=== PATIENT | male | born 1995 | race African-American/Black ===

== ENCOUNTER 2018-02-25 20:50 | Emergency (ER) | payer SELFPAY ==
--- NOTE | 2018-02-25 21:09 | NUR ---
ED Nurse Note: Patient called and not in waiting room.
--- NOTE | 2018-02-25 21:21 | NUR ---
ED Nurse Note: Patient called and not in waiting room.
--- NOTE | 2018-02-26 02:42 | Emergency Room Report ---
History of Present Illness General Chief Complaint: To Be Triaged Medical Decision Making Diagnostic Impression: Primary Impression: LWBSMD ER Course Patient presented after my shift and left prior to triage. Disposition: LEFT W/OUT BEING SEEN Condition: Unknown Referrals: NOT CHOSEN IPA/,REFERRING (PCP) Louis Rojas MD Feb 26, 2018 02:42
== END 2018-02-25 21:21 | disposition left against medical advice (07) ==
LOC: EMR 21:21
DX: Z53.21 Procedure and treatment not carried out due to patient leaving prior to being seen by health care provider (principal)

== ENCOUNTER 2018-03-12 17:39 | Emergency (ER) | payer OTHER ==
[2018-03-12] VITALS (7 sets, daily range): BP systolic 106–126; BP diastolic 54–78
[~2018-03-12] VITALS: Ht 170.2 cm; Wt 74.8 kg
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
--- NOTE | 2018-03-12 18:12 | NUR ---
ED Nurse Note: Belongings are in locker #2
--- NOTE | 2018-03-12 18:28 | NUR ---
ED Nurse Note: Blood and urine collected and sent to lab.
[2018-03-12 18:41] LABS: APPEARANCE,URINE CLEAR; BILIRUBIN, URINE NEGATIVE (NEGATIVE); GLUCOSE, URINE (UA) NEGATIVE (NEGATIVE); KETONES,URINE 1+ (NEGATIVE); LEUKOCYTE ESTERASE ,URINE 1+ (NEGATIVE); NITRITE,URINE NEGATIVE (NEGATIVE); PH,URINE 7 (4.5-8.0); PROTEIN,URINE 3+ (NEGATIVE); UROBILINOGEN,URINE 4 MG/DL (0.0-1.0)
[2018-03-12 18:50] LABS: COLOR,URINE YELLOW
[2018-03-12 19:01] LABS: ANION GAP 7 mmol/L (5-15); BLOOD UREA NITROGEN 10 mg/dL (7-18); CALCIUM 9.2 MG/DL (8.5-10.1); CARBON DIOXIDE 29 MMOL/L (21-32); CHLORIDE 107 MMOL/L (98-107); CREATININE 1.3 MG/DL (0.55-1.30); POTASSIUM 4.8 MMOL/L (3.5-5.1); SODIUM 143 MMOL/L (136-145)
[2018-03-12 19:05] LABS: ALANINE AMINOTRANSFERASE 21 U/L (12-78); ALBUMIN 4.2 G/DL (3.4-5.0); ALKALINE PHOSPHATASE 73 U/L (46-116); ASPARTATE AMINO TRANSFERASE 35 U/L (15-37); BASOPHILS % (AUTO) 3.2 % (0.0-2.0); BILIRUBIN,TOTAL 0.6 MG/DL (0.2-1.0); EOSINOPHILS % (AUTO) 1.8 % (0.0-3.0); HEMATOCRIT 44.5 % (42.0-52.0); HEMOGLOBIN 15.3 G/DL (14.2-18.0); LYMPHOCYTES % (AUTO) 26.3 % (20.0-45.0); MEAN CORPUSCULAR VOLUME 96 FL (80-99); MONOCYTES % (AUTO) 12.5 % (1.0-10.0); NEUTROPHILS % (AUTO) 56.2 % (45.0-75.0); PLATELET COUNT 171 K/UL (150-450); RED BLOOD COUNT 4.62 M/UL (4.70-6.10); RED CELL DISTRIBUTION WIDTH 11.2 % (11.6-14.8); WHITE BLOOD COUNT 4.9 K/UL (4.8-10.8)
--- NOTE | 2018-03-12 19:40 | NUR ---
ED Nurse Note: RECIEVED REPORT FROM AM NURSE TO RESUME CARE, PT IN BED IN 4 POINT HARD RESTRAINTS, ONE ARM ABOVE HEAD, PT IS SLEEPIG AND AROUSES VERY SEDATED AND LETHARGIC LIKE, ALL RESTRAINTS IMMEDIATELY REMOVED, PT NOT FIGHTING OR EVEN WITHDRAWING,NO SOB OR LABORED BREATHING, NO MONITORING, IN ROOM, PT V/S TAKEN VIA PORTABLE MACHING, HEART RATE LOW, MD AWARE, WILL CONTINUE TO CLOSELY MONITOR AND RESUME CARE NEEDED.
--- NOTE | 2018-03-12 22:00 | NUR ---
ED Nurse Note: PT CONTINUES TO ERST IN BED, PT IS SLEEPIGN BUT VERBALLY RESPONDS, IS POLITE, CALM AND COOPERATIVE, PT IS ORIENTED X 4, EVEN TO EVENT AND APOLOGETIC, PT REMAINS OUT OF RESTRAINTS, ON CLOSE, CONTINUOUS MONITORING.
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
[2018-03-13] VITALS (7 sets, daily range): BP systolic 102–127; BP diastolic 59–68
--- NOTE | 2018-03-13 00:15 | NUR ---
ED Nurse Note: Pt more awake and alert, pt is aware of event, pt was oriented to place and time, tp is calm and cooperative, pt given sandwich and juice, tolerated well, pt remains out of restraints, will continue to closely monitor, pt deneis pain, no sob or labored breathing, pt states he did make statements about killing himself, pt states he was very frustrated and having family problems and is depressed, sat and allowed pt to vent and express feelings, also explained hold process and plan of care, no acute chagnes or distress noted, will continue to closely monitor.
--- NOTE | 2018-03-13 03:00 | NUR ---
ED Nurse Note: Pt sleeping, arouses easily to touch, no chagnes or increased distress, pt remains calm and cooperative and out of restraints. no sob or labored breathing.
--- NOTE | 2018-03-13 05:00 | NUR ---
ED Nurse Note: PT SLEEPING, AROUSES EASILY TO TOUCH, NO ACUTE CHANGES OR INCREASED DISTRESS, PT CONTINUES TO BE CALM AND COOPERATIVE, NO NEED FOR RESTRAINTS, PT REMAINS ON HOLD AND SUICIDAL PRECAUTIONS, WILL CONTINUE TO CLOSELY MONITOR, SITTER TO ARRIVE IN AM.
--- NOTE | 2018-03-13 07:10 | NUR ---
HAND-OFF: Report given to [KINSEY ANTHONY, SITTER ATTIVED, PT SLEEPING, NO SOB OR LABORED BREATHING, REMAINS ON HOLD AND SUICIDLA PRECAUTIONS, NAD NOTED DURING SHIFT CHANGE. ].
--- NOTE | 2018-03-13 09:00 | NUR ---
ED Nurse Note: addendum: pt is off restraints, per nightshift RN report, pt was taken off restraints during awake overnight monitor, no s/s injury at this time, notified/verified order with ERMD, notified charge nurse.
--- NOTE | 2018-03-13 09:00 | NUR ---
ED Nurse Note: received report from RN BRITNI and assumed care, pt sleeping in bed and arousable to light shake and name, AA&ox4, gcs=15, calm and cooperative, resp even and unlabored, denies SI/HI/VH/AH at this time, VSS, sitter at the bedside, CMS intact BUE/BLE, active rom, strength+5, skin intact, bed lowest position w/ siderail x2, pt advised to notify staff if needed assist.
--- NOTE | 2018-03-13 11:30 | NUR ---
ED Nurse Note: pt resting comfortably in bed, vss, airway intact, resp even and unlabored, no neuro changes, pt provided with lunch, denies SI/HI/VH/AH, will cont monitor, pt advised to notify staff if needed assist.
--- NOTE | 2018-03-13 13:20 | NUR ---
ED Nurse Note: spoke with KINSEY Pinzon from [facility] to give report and continue care.
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
== END 2018-03-13 15:35 ==
LOC: EDBD 17:39 → EMR 18:13
DX: F91.9 Conduct disorder, unspecified (principal)
CPT/HCPCS: 36415; 80053; 80307; 80329; 81003; 85025; 99285

== ENCOUNTER 2019-04-11 02:22 | Emergency (ER) | payer OTHER ==
[~2019-04-11] VITALS: Ht 170.2 cm; Wt 77.1 kg
[2019-04-11 02:42] VITALS: BP 138/92
--- NOTE | 2019-04-11 02:42 | NUR ---
ED Nurse Note: Pt ambulated into ED from home [place] abdominal pain 10/10 and nausea. Pt denies vomiting. Pt denies fever/diarrhea. Pt states that he was standing in his bedroom talking to himself when he noticed the abdominal pain begin this evening. VSS, no s/s of distress. Awaiting ERMD at bedside
--- NOTE | 2019-04-11 02:49 | NUR ---
ED Nurse Note: ERMD at bedside
--- NOTE | 2019-04-11 02:58 | Emergency Room Report ---
History of Present Illness General Chief Complaint: Abdominal Pain Source: Patient Present Illness HPI This a 23-year-old male with psychiatric history. He presents with chief plan abdominal pain and chest pain. He said onset just prior to arrival. He said he got this when he started hearing voices. He is not on any medication. Denies any history of schizophrenia. Said he is not homeless. He said he is hungry. Pain is epigastric area. No nausea vomiting or diarrhea. No fever chills. Not suicidal or homicidal. Allergies: Coded Allergies: No Known Allergies (Unverified , 03/12/18) Patient History Past Medical History: see triage record, old chart reviewed Past Surgical History: none Pertinent Family History: none Social History: Reports: smoking Immunizations: other Reviewed Nursing Documentation: PMH: Agreed; PSxH: Agreed Nursing Documentation-PMH Past Medical History: No Stated History Review of Systems Eye: Denies: eye pain, blurred vision ENT: Denies: ear pain, nose congestion, throat swelling Respiratory: Denies: cough, shortness of breath Cardiovascular: Reports: chest pain; Denies: palpitations Gastrointestinal: Reports: abdominal pain; Denies: diarrhea, nausea, vomiting Musculoskeletal: Denies: back pain, joint pain Skin: Denies: rash Neurological: Denies: headache, numbness Endocrine: Denies: increased thirst, increased urine Hematologic/Lymphatic: Denies: easy bruising All Other Systems: negative except mentioned in HPI Physical Exam Vital Signs Date Time Temp Pulse Resp B/P (MAP) Pulse Ox O2 Delivery O2 Flow Rate FiO2 04/11/19 02:34 98.8 60 14 138/92 (107) 93 Room Air Vitals normal Sp02 EP Interpretation: reviewed, normal General Appearance: well appearing, no apparent distress, alert Head: normocephalic, atraumatic Eyes: bilateral eye PERRL, bilateral eye EOMI ENT: hearing grossly normal, normal pharynx Neck: full range of motion, supple, no meningismus Respiratory: chest non-tender, lungs clear, normal breath sounds Cardiovascular #1: regular rate, rhythm, no murmur Gastrointestinal: normal bowel sounds, non tender, no mass, no organomegaly, no bruit, non-distended Musculoskeletal: back normal, normal range of motion, gait/station normal Psychiatric: mood/affect normal Medical Decision Making Diagnostic Impression: Primary Impression: Abdominal pain Qualified Codes: R10.13 - Epigastric pain ER Course Said he has chest pain abdominal pain but exam is benign. Has no pain on my exam. He ate without any problem. I see no need for x-ray or blood work. Will discharge home. Last Vital Signs Date Time Temp Pulse Resp B/P (MAP) Pulse Ox O2 Delivery O2 Flow Rate FiO2 04/11/19 02:34 98.8 60 14 138/92 (107) 93 Room Air Status: improved Disposition: HOME, SELF-CARE Condition: Stable Scripts No Active Prescriptions or Reported Meds Referrals: NON PHYSICIAN (PCP) Patient Instructions: Abdominal Pain, Adult Additional Instructions: Follow-up with your doctor in 7 days. Return if symptoms worsen. Edmund Lr MD Apr 11, 2019 02:58
[2019-04-11 03:01] VITALS: BP 138/92
--- NOTE | 2019-04-11 03:01 | NUR ---
ER DISCHARGE NOTE: Patient is cleared to be discharged home per ERMD, pt is aox4, on room air, with stable vital signs. pt was given dc instructions, pt was able to verbalize understanding, pt id band removed. pt is able to ambulate with steady gait. pt took all belongings.
== END 2019-04-11 03:01 | disposition home or self-care (01) ==
LOC: EMR 02:53
DX: R10.13 Epigastric pain (principal); R07.9 Chest pain, unspecified; F17.200 Nicotine dependence, unspecified, uncomplicated
CPT/HCPCS: 99281